=== PATIENT | male | born 2000 | race Hispanic/Latino ===

== ENCOUNTER 2025-01-08 16:47 | Emergency (ER) | payer SELFPAY ==
--- NOTE | 2025-01-08 17:15 | EDPHYS ---
Physician Documentation [facility] Name: Scout Echevarria Age: 24 yrs Sex: Male : 2000 Arrival Date: 01/08/2025 Time: 16:47 Bed IW4 Private MD: ED Physician Sajan Arreaga HPI: 01/08 17:06 This 24 yrs old Male presents to ER via Ambulatory with complaints of Penile Injury, rn Penile Bleeding. 17:06 The patient presents with Penile tear. Onset: The symptoms/episode began/occurred rn today. Severity of symptoms: At their worst the symptoms were mild, in the emergency department the symptoms are unchanged. Patient reports having sex and had penile injury, to frenulum. Is uncircumcised. Has controlled the bleeding. No concern for blood-borne illness or exposure. Declines prophylaxis. Patient denies injury to shaft itself and was able to remain hard. Patient no longer with erection and bleeding controlled.. Historical: - Allergies: 17:04 No Known Allergies; me1 - Home Meds: 17:04 None [Active]; me1 - PMHx: 17:04 None; me1 - PSHx: 17:04 None; me1 - Immunization history:: Adult Immunizations up to date. - Infectious Disease History:: Denies. - Social history:: Smoking status: Patient denies any tobacco usage or history of. - Family history:: not pertinent. - Hospitalizations: : No recent hospitalization is reported. ROS: 17:06 Constitutional: Negative for fever, chills, and weight loss, : Positive for foreskin rn injury/frenulum injury Exam: 17:06 Constitutional: This is a well developed, well nourished patient who is awake, alert, rn and in no acute distress. Male : 1 cm superficial incomplete tear of frenulum and foreskin. No active bleeding. Vital Signs: 17:01 BP 136 / 92; Pulse 109; Resp 20; Temp 97.6; Pulse Ox 99% ; Weight 78.93 kg; Height 5 me1 ft. 9 in. ; Pain 2/10; 17:01 Body Mass Index 25.70 (78.93 kg, 175.26 cm) me1 17:01 Pain Scale: Adult me1 MDM: 16:54 Medical Screening Exam initiated rn 17:06 Differential diagnosis: Frenulum injury. Data reviewed: vital signs, nurses notes, and rn as a result, I will discharge patient. Counseling: I had a detailed discussion with the patient and/or guardian regarding the historical points, exam findings, and any diagnostic results supporting the discharge/admit diagnosis, the need for outpatient follow up, to return to the emergency department if symptoms worsen or persist or if there are any questions or concerns that arise at home. Special discussion: I discussed with the patient/guardian in detail that at this point there is no indication for admission to the hospital. It is understood, however, that if the symptoms persist or worsen the patient needs to return immediately for re-evaluation. ED course: Patient with superficial frenulum tear that is incomplete. Bleeding controlled. Dressed wound and told patient how to manage it at home. Return precautions given and understood. Also gave patient Surgicel in case has trouble controlling bleeding.. Administered Medications: No medications were administered Disposition Summary: 01/08/25 17:15 Discharge Ordered Notes: Location: Home rn Problem: new rn Symptoms: have improved rn Condition: Stable rn Diagnosis - Tear of penile frenulum rn Followup: rn - With: Jhon Townsend MD - When: As needed - Reason: Recheck today's complaints, Re-evaluation by your physician Discharge Instructions: - Discharge Summary Sheet rn - Wound Care, Adult rn Forms: - Medication Reconciliation Form rn - Antibiotic rn security - Prescription Opioid Use rn - Patient Portal Instructions rn - Leadership Thank You Letter rn Signatures: Sajan Arreaga MD MD rn Eddleman, Michelle, RN RN me1
--- NOTE | 2025-01-08 17:15 | ER ---
Nurse's Notes [facility] Name: Scout Echevarria Age: 24 yrs Sex: Male : 2000 Arrival Date: 01/08/2025 Time: 16:47 Bed IW4 Private MD: Diagnosis: Tear of penile frenulum Presentation: 01/08 17:01 Chief complaint: Patient states: was having sex about an hour ago and injured his me1 penis. Has a tear in the foreskin. Bleeding controlled. No pain at this time, just tenderness. Coronavirus screen: At this time, the client does not indicate any symptoms associated with coronavirus-19. Ebola Screen: No symptoms or risks identified at this time. Initial Sepsis Screen: Does the patient meet any 2 criteria? No. Patient's initial sepsis screen is negative. Does the patient have a suspected source of infection? No. Patient's initial sepsis screen is negative. Risk Assessment: Do you want to hurt yourself or someone else? Patient reports no desire to harm self or others. Onset of symptoms was January 08, 2025 at 16:00. 17:01 Method Of Arrival: Ambulatory [facility] 17:01 Acuity: Unassigned [facility] Triage Assessment: 17:04 General: Appears uncomfortable, well groomed, well developed, well nourished, Behavior me1 is calm, cooperative, appropriate for age. Pain: Complains of pain in groin Pain does not radiate. Pain currently is 2 out of 10 on a pain scale. Quality of pain is described as tender, Pain began suddenly, Is continuous. EENT: No signs and/or symptoms were reported regarding the EENT system. Neuro: Level of Consciousness is awake, alert, obeys commands, Oriented to person, place, time, situation, Appropriate for age. Cardiovascular: Patient's skin is warm and dry. Respiratory: Airway is patent Respiratory effort is even, unlabored, Respiratory pattern is regular, symmetrical. GI: No signs and/or symptoms were reported involving the gastrointestinal system. : on penis tear to foreskin. Derm: Skin is intact, is healthy with good turgor, Skin is pink, warm \T\ dry. Historical: - Allergies: 17:04 No Known Allergies; me1 - Home Meds: 17:04 None [Active]; me1 - PMHx: 17:04 None; me1 - PSHx: 17:04 None; me1 - Immunization history:: Adult Immunizations up to date. - Infectious Disease History:: Denies. - Social history:: Smoking status: Patient denies any tobacco usage or history of. - Family history:: not pertinent. - Hospitalizations: : No recent hospitalization is reported. Screenin:06 [facility] ED Fall Risk Assessment (Adult) History of falling in the last 3 months, me1 including since admission No falls in past 3 months (0 pts) Confusion or Disorientation No (0 pts) Intoxicated or Sedated No (0 pts) Impaired Gait No (0 pts) Mobility Assist Device Used No (0 pt) Altered Elimination No (0 pt) Score/Fall Risk Level 0 - 2 = Low Risk Maintained a safe environment, Provided non-skid footwear, Hourly rounding (assess needs \T\ fall precautionary measures) done. Abuse screen: Denies threats or abuse. Nutritional screening: No deficits noted. Tuberculosis screening: No symptoms or risk factors identified. Assessment: 17:06 General: See triage assessment. me1 Vital Signs: 17:01 BP 136 / 92; Pulse 109; Resp 20; Temp 97.6; Pulse Ox 99% ; Weight 78.93 kg; Height 5 me1 ft. 9 in. ; Pain 2/10; 17:01 Body Mass Index 25.70 (78.93 kg, 175.26 cm) me1 17:01 Pain Scale: Adult ak1 ED Course: 16:51 Patient arrived in ED. im 16:54 Sajan Arreaga MD is Attending Physician. rn 17:04 Triage completed. me1 17:04 Arm band placed on Patient placed in waiting room. me1 17:06 Patient has correct armband on for positive identification. Provided Education on: POC. me1 Verbalized understanding.. 17:06 No provider procedures requiring assistance completed. Patient did not have IV access me1 during this emergency room visit. 17:14 Jhon Townsend MD is Referral Physician. rn Administered Medications: No medications were administered Medication: 17:06 VIS not applicable for this client. me1 Outcome: 17:15 Discharge ordered by . rn 17:18 Discharged to home ambulatory, with friend, me1 17:18 Condition: stable 17:18 Discharge instructions given to patient, Instructed on discharge instructions, follow up and referral plans. Demonstrated understanding of instructions, follow-up care, 17:18 Patient left the ED. me1 Signatures: Sajan Arreaga MD MD rn Mendoza, Itzel im Eddleman, Michelle, RN RN me1
[2025-01-08 17:53] VITALS: BP 136/92; TEMP 97.6; O2SAT 99
== END 2025-01-08 17:18 | disposition home or self-care (01) ==
LOC: ER 16:47
DX: S31.21XA Laceration without foreign body of penis, initial encounter (principal)
CPT/HCPCS: 99282